=== PATIENT | male | born 1950 | race Two or more races ===

== ENCOUNTER 2018-11-09 14:13 | Inpatient (IN) | payer MEDICARE, OTHER ==
[~2018-11-09] VITALS: Ht 177.8 cm; Wt 102.9 kg
[2018-11-09] MEDS ORDERED: BISACODYL 10 MG SUPP PR PRN (17:00)
[2018-11-09] MEDS ORDERED: ONDANSETRON ODT 4 MG PO PRN (17:00)
[2018-11-09] MEDS ORDERED: POLYETHYLENE GLYCOL 17 GM PACKET PO PRN (17:00)
[2018-11-09] MEDS ORDERED: PLEASE ENTER HEIGHT AND WEIGHT MC SCH (18:00)
[2018-11-09 18:06] VITALS: BP 174/83
[2018-11-09] MEDS ORDERED: CARV6.25 PO (18:42)
[2018-11-09] MEDS ORDERED: VENL75CA PO (18:42)
[2018-11-09] MEDS ORDERED: MEMA5TAB14 PO (18:42)
[2018-11-09] MEDS ORDERED: ENAL20TA PO (18:42)
[2018-11-09 19:39] VITALS: BP 150/85
[2018-11-09] MEDS: QUETIAPINE 25MG TABLET PO SCH (21:08)
[2018-11-09] MEDS: DIVALPROEX 125 MG CAP.SPRINK PO SCH (21:09)
[2018-11-09] MEDS ORDERED: LORazepam 0.5MG TABLET PO ONE (23:30)
[2018-11-09] MEDS ORDERED: LORazepam 2 MG/ML, 1ML IM ONE (23:30)
[2018-11-10 07:35] VITALS: BP 135/85
[2018-11-10 08:18] LABS: BASOPHILS # (AUTO) 0.03 x10^3/uL (0-0.1); BASOPHILS % (AUTO) 1 % (0-1); EOSINOPHILS # (AUTO) 0.13 x10^3/uL (0-0.4); EOSINOPHILS % (AUTO) 2 % (1-7); LYMPHOCYTES % (AUTO) 17 % (22-44); MD NO; MEAN CORPUSCULAR HEMOGLOBIN 31.6 pg (27.5-34.5); MEAN CORPUSCULAR HGB CONC 33.7 g/dL (33.2-36.2); MEAN CORPUSCULAR VOLUME 93.9 fL (81-97); MONOCYTES # (AUTO) 0.45 x10^3/uL (0.2-0.8); MONOCYTES % (AUTO) 7 % (2-9); NEUTROPHILS # (AUTO) 5.19 x10^3/uL (1.8-6.8); NEUTROPHILS % (AUTO) 74 % (42-75); PLATELET COUNT 174 x10^3/uL (130-400); RED BLOOD COUNT 5.03 x10^6/uL (4.38-5.82); RED CELL DISTRIBUTION WIDTH 13.5 % (9.4-14.8)
[2018-11-10 08:29] LABS: ALBUMIN 3.5 g/dL (3.4-5.0); ANION GAP 5 mmol/L (5-15); CALCIUM 9.1 mg/dL (8.5-10.1); CHLORIDE 108 mmol/L (98-107)
[2018-11-10 08:54] LABS: ALANINE AMINOTRANSFERASE 20 U/L (12-78); ALKALINE PHOSPHATASE 92 U/L (45-117); BILIRUBIN,TOTAL 0.8 mg/dL (0.2-1.0); CHOL/HDL RATIO 2.7; CHOLESTEROL, TOTAL 186 mg/dL (140-239); HDL CHOL % 37 % (26-37); HDL CHOLESTEROL (DIRECT) 68 mg/dL (40-60); LDL CHOLESTEROL,CALCULATED 86 mg/dL (54-169); LDL/HDL RATIO 1.3 (0.5-3.0); TOTAL PROTEIN 7.1 g/dL (6.4-8.2); TRIGLYCERIDES 158 mg/dL (50-200); VLDL CHOLESTEROL 32 mg/dL (0-25)
[2018-11-10] MEDS: SENNA/DOCUSATE TABLET PO SCH (09:51)
[2018-11-10] MEDS: DIVALPROEX 125 MG CAP.SPRINK PO SCH ×2 (09:51→20:21)
[2018-11-10] MEDS: QUETIAPINE 25MG TABLET PO PRN (09:52)
[2018-11-10] MEDS: MEMANTINE 5MG TABLET PO SCH (20:20)
[2018-11-10] MEDS: ACAMPROSATE 333 MG TABLET.DR PO SCH (20:20)
[2018-11-10] MEDS: QUETIAPINE 25MG TABLET PO SCH (20:21)
[2018-11-11 02:18] LABS: MICROSCOPIC NOT IND
[2018-11-11 02:22] LABS: CULTURE INDICATED? NO
[2018-11-11] MEDS: ASPIRIN 81 MG TABLET EC PO SCH (06:14)
[2018-11-11] MEDS: OMEPRAZOLE 20 MG CAPSULE.DR PO SCH (06:14)
[2018-11-11 08:00] VITALS: BP 168/91
[2018-11-11] MEDS: LORATADINE 10 MG TABLET PO SCH (09:25)
[2018-11-11] MEDS: VENLAFAXINE 75 MG CAP ER PO SCH (09:25)
[2018-11-11] MEDS: DIVALPROEX 125 MG CAP.SPRINK PO SCH ×2 (09:26→19:56)
[2018-11-11] MEDS: SENNA/DOCUSATE TABLET PO SCH (09:26)
[2018-11-11] MEDS: MEMANTINE 5MG TABLET PO SCH ×2 (09:26→20:10)
[2018-11-11] MEDS: ACAMPROSATE 333 MG TABLET.DR PO SCH ×3 (09:26→19:56)
[2018-11-11 11:45] VITALS: BP 174/87
[2018-11-11] MEDS: CARVEDILOL 3.125 MG TABLET PO SCH ×2 (11:50→17:18)
[2018-11-11 17:20] VITALS: BP 183/91
[2018-11-11] MEDS: ENALAPRIL 2.5MG TABLET PO SCH ×2 (18:15→19:56)
[2018-11-11 19:31] VITALS: BP 199/96
[2018-11-11] MEDS: QUETIAPINE 25MG TABLET PO SCH (19:56)
[2018-11-12] MEDS: CARVEDILOL 3.125 MG TABLET PO SCH ×2 (05:14→16:27)
[2018-11-12] MEDS: ASPIRIN 81 MG TABLET EC PO SCH (05:14)
[2018-11-12] MEDS: OMEPRAZOLE 20 MG CAPSULE.DR PO SCH (05:14)
[2018-11-12 07:27] VITALS: BP 197/94
[2018-11-12 08:22] LABS: ALBUMIN 3.4 g/dL (3.4-5.0); ANION GAP 4 mmol/L (5-15); CALCIUM 9.1 mg/dL (8.5-10.1); CHLORIDE 111 mmol/L (98-107)
[2018-11-12 08:23] LABS: CREATININE 1.23 mg/dL (0.7-1.3)
[2018-11-12] MEDS: ACAMPROSATE 333 MG TABLET.DR PO SCH ×3 (09:23→20:10)
[2018-11-12] MEDS: ENALAPRIL 2.5MG TABLET PO SCH ×2 (09:23→20:12)
[2018-11-12] MEDS: SENNA/DOCUSATE TABLET PO SCH (09:23)
[2018-11-12] MEDS: MEMANTINE 5MG TABLET PO SCH ×2 (09:24→20:09)
[2018-11-12] MEDS: LORATADINE 10 MG TABLET PO SCH (09:24)
[2018-11-12] MEDS: VENLAFAXINE 75 MG CAP ER PO SCH (09:24)
[2018-11-12] MEDS: DIVALPROEX 125 MG CAP.SPRINK PO SCH ×2 (09:24→20:12)
[2018-11-12] MEDS: ACETAMINOPHEN 325 MG TABLET PO PRN (16:27)
[2018-11-12 17:29] VITALS: BP 194/82
[2018-11-12] MEDS ORDERED: LISINOPRIL 20 MG TABLET PO STA (17:52)
[2018-11-12 18:30] VITALS: BP 185/95
[2018-11-12] MEDS: QUETIAPINE 25MG TABLET PO SCH (20:10)
[2018-11-12] MEDS: LISINOPRIL 20 MG TABLET PO SCH (20:12)
[2018-11-12] MEDS: CARVEDILOL 12.5 MG TABLET PO SCH (20:13)
[2018-11-12] MEDS ORDERED: LORazepam 0.5MG TABLET ONE (21:47)
[2018-11-13] MEDS: OMEPRAZOLE 20 MG CAPSULE.DR PO SCH (05:52)
[2018-11-13] MEDS: ASPIRIN 81 MG TABLET EC PO SCH (05:52)
[2018-11-13 07:37] VITALS: BP 186/75
[2018-11-13] MEDS: LISINOPRIL 20 MG TABLET PO SCH ×2 (08:56→20:16)
[2018-11-13] MEDS: SENNA/DOCUSATE TABLET PO SCH (08:56)
[2018-11-13] MEDS: ACAMPROSATE 333 MG TABLET.DR PO SCH ×3 (08:56→20:14)
[2018-11-13] MEDS: CARVEDILOL 12.5 MG TABLET PO SCH ×2 (08:57→20:15)
[2018-11-13] MEDS: DIVALPROEX 125 MG CAP.SPRINK PO SCH ×2 (08:57→20:15)
[2018-11-13] MEDS: LORATADINE 10 MG TABLET PO SCH (08:57)
[2018-11-13] MEDS: ENALAPRIL 2.5MG TABLET PO SCH ×2 (08:57→20:16)
[2018-11-13] MEDS: VENLAFAXINE 75 MG CAP ER PO SCH (08:57)
[2018-11-13] MEDS: MEMANTINE 5MG TABLET PO SCH ×2 (08:57→20:15)
[2018-11-13] MEDS: QUETIAPINE 25MG TABLET PO PRN (16:55)
[2018-11-13 17:29] VITALS: BP 179/74
[2018-11-13] MEDS: QUETIAPINE 25MG TABLET PO SCH (20:17)
[2018-11-13 21:00] VITALS: BP 179/80
[2018-11-14] MEDS: QUETIAPINE 25MG TABLET PO PRN (01:32)
[2018-11-14] MEDS: OMEPRAZOLE 20 MG CAPSULE.DR PO SCH (05:29)
[2018-11-14] MEDS: ASPIRIN 81 MG TABLET EC PO SCH (05:29)
[2018-11-14 06:04] LABS: ALBUMIN 3.1 g/dL (3.4-5.0); ANION GAP 4 mmol/L (5-15); CALCIUM 8.6 mg/dL (8.5-10.1); CHLORIDE 113 mmol/L (98-107); CREATININE 1.22 mg/dL (0.7-1.3)
[2018-11-14 07:37] VITALS: BP 165/82
[2018-11-14] MEDS: ENALAPRIL 2.5MG TABLET PO SCH (08:12)
[2018-11-14] MEDS: SENNA/DOCUSATE TABLET PO SCH (08:12)
[2018-11-14] MEDS: ACAMPROSATE 333 MG TABLET.DR PO SCH ×3 (08:12→20:17)
[2018-11-14] MEDS: ACETAMINOPHEN 325 MG TABLET PO PRN (08:12)
[2018-11-14] MEDS: LORATADINE 10 MG TABLET PO SCH (08:12)
[2018-11-14] MEDS: DIVALPROEX 125 MG CAP.SPRINK PO SCH ×2 (08:12→20:17)
[2018-11-14] MEDS: VENLAFAXINE 75 MG CAP ER PO SCH (08:13)
[2018-11-14] MEDS: MEMANTINE 5MG TABLET PO SCH ×2 (08:13→21:04)
[2018-11-14] MEDS: CARVEDILOL 12.5 MG TABLET PO SCH ×2 (08:13→20:17)
[2018-11-14 13:24] VITALS: BP 170/98
[2018-11-14 19:55] VITALS: BP 189/98
[2018-11-14] MEDS: ENALAPRIL 10 MG TABLET PO SCH (20:16)
[2018-11-14] MEDS: QUETIAPINE 25MG TABLET PO SCH (20:17)
[2018-11-15] MEDS: OMEPRAZOLE 20 MG CAPSULE.DR PO SCH (05:44)
[2018-11-15] MEDS: ASPIRIN 81 MG TABLET EC PO SCH (05:44)
[2018-11-15 07:27] VITALS: BP 190/95
[2018-11-15] MEDS: SENNA/DOCUSATE TABLET PO SCH (08:05)
[2018-11-15] MEDS: DIVALPROEX 125 MG CAP.SPRINK PO SCH ×2 (08:05→19:54)
[2018-11-15] MEDS: ACAMPROSATE 333 MG TABLET.DR PO SCH ×3 (08:05→19:53)
[2018-11-15] MEDS: MEMANTINE 5MG TABLET PO SCH ×2 (08:05→19:55)
[2018-11-15] MEDS: LORATADINE 10 MG TABLET PO SCH (08:05)
[2018-11-15] MEDS: ENALAPRIL 10 MG TABLET PO SCH ×2 (08:05→19:55)
[2018-11-15] MEDS: VENLAFAXINE 75 MG CAP ER PO SCH (08:05)
[2018-11-15 09:00] VITALS: BP 176/84
[2018-11-15] MEDS: CARVEDILOL 12.5 MG TABLET PO SCH ×2 (09:23→19:54)
[2018-11-15 10:38] LABS: ALBUMIN 3.4 g/dL (3.4-5.0); ANION GAP 5 mmol/L (5-15); CALCIUM 8.8 mg/dL (8.5-10.1); CHLORIDE 112 mmol/L (98-107); CREATININE 1.22 mg/dL (0.7-1.3)
[2018-11-15 14:59] VITALS: BP 185/83
[2018-11-15 19:24] VITALS: BP_SYST 212; BP_SYST 215; BP_DIAS 90; BP_DIAS 98
[2018-11-15] MEDS: QUETIAPINE 25MG TABLET PO PRN (19:54)
[2018-11-15] MEDS: QUETIAPINE 25MG TABLET PO SCH (19:54)
[2018-11-16 07:25] VITALS: BP 191/87
[2018-11-16] MEDS: OMEPRAZOLE 20 MG CAPSULE.DR PO SCH (08:08)
[2018-11-16] MEDS: VENLAFAXINE 75 MG CAP ER PO SCH (08:08)
[2018-11-16] MEDS: CARVEDILOL 12.5 MG TABLET PO SCH ×2 (08:08→19:47)
[2018-11-16] MEDS: MEMANTINE 5MG TABLET PO SCH ×2 (08:08→19:47)
[2018-11-16] MEDS: ACAMPROSATE 333 MG TABLET.DR PO SCH ×3 (08:08→19:47)
[2018-11-16] MEDS: ENALAPRIL 20MG TABLET PO SCH ×2 (08:09→19:47)
[2018-11-16] MEDS: LORATADINE 10 MG TABLET PO SCH (08:09)
[2018-11-16] MEDS: SENNA/DOCUSATE TABLET PO SCH (08:09)
[2018-11-16] MEDS: ASPIRIN 81 MG TABLET EC PO SCH (08:09)
[2018-11-16] MEDS: DIVALPROEX 125 MG CAP.SPRINK PO SCH ×2 (08:09→19:47)
[2018-11-16] MEDS: QUETIAPINE 25MG TABLET PO SCH (19:47)
[2018-11-16 20:31] VITALS: BP 165/75
[2018-11-16] MEDS: QUETIAPINE 25MG TABLET PO PRN (22:57)
[2018-11-17] MEDS: ASPIRIN 81 MG TABLET EC PO SCH (05:28)
[2018-11-17] MEDS: OMEPRAZOLE 20 MG CAPSULE.DR PO SCH (05:28)
[2018-11-17 07:09] VITALS: BP 197/79
[2018-11-17] MEDS: LORATADINE 10 MG TABLET PO SCH (08:24)
[2018-11-17] MEDS: ACAMPROSATE 333 MG TABLET.DR PO SCH ×3 (08:24→20:31)
[2018-11-17] MEDS: SENNA/DOCUSATE TABLET PO SCH (08:24)
[2018-11-17] MEDS: ENALAPRIL 20MG TABLET PO SCH ×2 (08:24→20:31)
[2018-11-17] MEDS: DIVALPROEX 125 MG CAP.SPRINK PO SCH ×2 (08:24→20:32)
[2018-11-17] MEDS: CARVEDILOL 12.5 MG TABLET PO SCH ×2 (08:25→20:31)
[2018-11-17] MEDS: MEMANTINE 5MG TABLET PO SCH (08:25)
[2018-11-17] MEDS: VENLAFAXINE 75 MG CAP ER PO SCH (08:25)
[2018-11-17] MEDS: QUETIAPINE 25MG TABLET PO PRN (16:23)
[2018-11-17 19:41] VITALS: BP 175/79
[2018-11-17] MEDS: QUETIAPINE 25MG TABLET PO SCH ×2 (20:31)
[2018-11-17] MEDS: MEMANTINE 10MG TABLET PO SCH (20:32)
[2018-11-18] MEDS: ASPIRIN 81 MG TABLET EC PO SCH (06:18)
[2018-11-18] MEDS: OMEPRAZOLE 20 MG CAPSULE.DR PO SCH (06:18)
[2018-11-18 07:07] VITALS: BP 191/76
[2018-11-18 08:32] LABS: ALBUMIN 3.2 g/dL (3.4-5.0); ANION GAP 2 mmol/L (5-15); CALCIUM 8.4 mg/dL (8.5-10.1); CHLORIDE 114 mmol/L (98-107); CREATININE 1.17 mg/dL (0.7-1.3)
[2018-11-18] MEDS: LORATADINE 10 MG TABLET PO SCH (08:36)
[2018-11-18] MEDS: ACAMPROSATE 333 MG TABLET.DR PO SCH ×3 (08:36→19:49)
[2018-11-18] MEDS: ENALAPRIL 20MG TABLET PO SCH ×2 (08:37→19:50)
[2018-11-18] MEDS: CARVEDILOL 12.5 MG TABLET PO SCH ×2 (08:37→19:50)
[2018-11-18] MEDS: VENLAFAXINE 75 MG CAP ER PO SCH (08:37)
[2018-11-18] MEDS: MEMANTINE 10MG TABLET PO SCH ×2 (08:37→19:49)
[2018-11-18] MEDS: DIVALPROEX 125 MG CAP.SPRINK PO SCH ×2 (08:37→19:49)
[2018-11-18] MEDS: SENNA/DOCUSATE TABLET PO SCH ×2 (08:37→09:00)
[2018-11-18] MEDS: QUETIAPINE 25MG TABLET PO SCH ×3 (08:38→19:53)
[2018-11-18 09:33] VITALS: BP 146/81
[2018-11-18 19:59] VITALS: BP 196/97
[2018-11-19] MEDS: ASPIRIN 81 MG TABLET EC PO SCH (05:16)
[2018-11-19] MEDS: OMEPRAZOLE 20 MG CAPSULE.DR PO SCH (05:17)
[2018-11-19 07:50] VITALS: BP 189/75
[2018-11-19] MEDS: SENNA/DOCUSATE TABLET PO SCH (09:05)
[2018-11-19] MEDS: ACAMPROSATE 333 MG TABLET.DR PO SCH ×3 (09:05→19:52)
[2018-11-19] MEDS: VENLAFAXINE 75 MG CAP ER PO SCH (09:06)
[2018-11-19] MEDS: MEMANTINE 10MG TABLET PO SCH ×2 (09:06→19:52)
[2018-11-19] MEDS: LORATADINE 10 MG TABLET PO SCH (09:06)
[2018-11-19] MEDS: DIVALPROEX 125 MG CAP.SPRINK PO SCH ×2 (09:06→19:52)
[2018-11-19] MEDS: ENALAPRIL 20MG TABLET PO SCH ×2 (09:06→19:53)
[2018-11-19] MEDS: QUETIAPINE 25MG TABLET PO SCH ×3 (09:06→19:54)
[2018-11-19] MEDS: CARVEDILOL 12.5 MG TABLET PO SCH ×2 (09:06→19:53)
[2018-11-19 12:38] VITALS: BP 179/79
[2018-11-19 19:55] VITALS: BP 207/92
[2018-11-19 20:22] VITALS: BP 160/93
[2018-11-20] MEDS: ASPIRIN 81 MG TABLET EC PO SCH (06:00)
[2018-11-20] MEDS: OMEPRAZOLE 20 MG CAPSULE.DR PO SCH (06:00)
[2018-11-20 08:00] VITALS: BP 173/89
[2018-11-20 08:38] LABS: ALBUMIN 3.3 g/dL (3.4-5.0); ANION GAP 3 mmol/L (5-15); CALCIUM 8.8 mg/dL (8.5-10.1); CHLORIDE 113 mmol/L (98-107); CREATININE 1.12 mg/dL (0.7-1.3)
[2018-11-20] MEDS: CARVEDILOL 12.5 MG TABLET PO SCH ×2 (10:22→20:01)
[2018-11-20] MEDS: ENALAPRIL 20MG TABLET PO SCH ×2 (10:22→20:01)
[2018-11-20] MEDS: LORATADINE 10 MG TABLET PO SCH (10:22)
[2018-11-20] MEDS: SPIRONOLACTONE 25 MG TABLET PO SCH (10:22)
[2018-11-20] MEDS: ACAMPROSATE 333 MG TABLET.DR PO SCH ×3 (10:22→20:01)
[2018-11-20] MEDS: VENLAFAXINE 75 MG CAP ER PO SCH (10:22)
[2018-11-20] MEDS: SENNA/DOCUSATE TABLET PO SCH (10:22)
[2018-11-20] MEDS: DIVALPROEX 125 MG CAP.SPRINK PO SCH ×2 (10:22→20:01)
[2018-11-20] MEDS: QUETIAPINE 25MG TABLET PO SCH ×3 (10:28→20:01)
[2018-11-20] MEDS: MEMANTINE 10MG TABLET PO SCH ×2 (10:31→20:00)
[2018-11-20 22:49] VITALS: BP 154/70
[2018-11-21 07:20] VITALS: BP 215/82
[2018-11-21] MEDS ORDERED: ENALAPRILAT 1.25 MG/ML, 2ML IV PRN (08:30)
[2018-11-21] MEDS: MEMANTINE 10MG TABLET PO SCH ×2 (08:36→19:57)
[2018-11-21] MEDS: OMEPRAZOLE 20 MG CAPSULE.DR PO SCH (08:36)
[2018-11-21] MEDS: LORATADINE 10 MG TABLET PO SCH (08:36)
[2018-11-21] MEDS: CARVEDILOL 12.5 MG TABLET PO SCH ×2 (08:37→19:57)
[2018-11-21] MEDS: ASPIRIN 81 MG TABLET EC PO SCH (08:37)
[2018-11-21] MEDS: ENALAPRIL 20MG TABLET PO SCH ×2 (08:37→19:57)
[2018-11-21] MEDS: VENLAFAXINE 75 MG CAP ER PO SCH (08:37)
[2018-11-21] MEDS: ACAMPROSATE 333 MG TABLET.DR PO SCH ×3 (08:37→19:55)
[2018-11-21] MEDS: DIVALPROEX 125 MG CAP.SPRINK PO SCH ×2 (08:38→19:56)
[2018-11-21] MEDS: SENNA/DOCUSATE TABLET PO SCH (08:39)
[2018-11-21] MEDS: QUETIAPINE 25MG TABLET PO SCH ×3 (08:39→19:57)
[2018-11-21] MEDS: SPIRONOLACTONE 25 MG TABLET PO SCH ×2 (08:41→19:56)
[2018-11-21 08:43] LABS: ALBUMIN 3.5 g/dL (3.4-5.0); ANION GAP 4 mmol/L (5-15); CHLORIDE 114 mmol/L (98-107); CREATININE 1.07 mg/dL (0.7-1.3)
[2018-11-21 19:10] VITALS: BP 216/190
[2018-11-22] MEDS: ASPIRIN 81 MG TABLET EC PO SCH (05:43)
[2018-11-22] MEDS: OMEPRAZOLE 20 MG CAPSULE.DR PO SCH (05:43)
[2018-11-22 08:00] VITALS: BP 213/91
[2018-11-22] MEDS: LORATADINE 10 MG TABLET PO SCH (08:15)
[2018-11-22] MEDS: DIVALPROEX 125 MG CAP.SPRINK PO SCH ×2 (08:15→19:44)
[2018-11-22] MEDS: ACAMPROSATE 333 MG TABLET.DR PO SCH ×3 (08:15→19:43)
[2018-11-22] MEDS: SPIRONOLACTONE 25 MG TABLET PO SCH ×2 (08:16→19:44)
[2018-11-22] MEDS: CARVEDILOL 12.5 MG TABLET PO SCH ×2 (08:16→19:43)
[2018-11-22] MEDS: ENALAPRIL 20MG TABLET PO SCH ×2 (08:16→19:44)
[2018-11-22] MEDS: SENNA/DOCUSATE TABLET PO SCH (08:16)
[2018-11-22] MEDS: VENLAFAXINE 75 MG CAP ER PO SCH (08:16)
[2018-11-22] MEDS: QUETIAPINE 25MG TABLET PO SCH ×3 (08:17→19:45)
[2018-11-22] MEDS: MEMANTINE 10MG TABLET PO SCH ×2 (08:17→19:44)
[2018-11-22 09:42] VITALS: BP 174/85
[2018-11-22] MEDS: FUROSEMIDE 20 MG TABLET PO SCH (12:52)
[2018-11-22] MEDS ORDERED: ENAL20TA PO (18:01)
[2018-11-22] MEDS ORDERED: ASPI81TA45 PO (18:01)
[2018-11-22] MEDS ORDERED: OMEP-110 PO (18:01)
[2018-11-22] MEDS ORDERED: SPIR25TA PO (18:01)
[2018-11-22] MEDS ORDERED: QUET25TA7 PO ×2 (18:01)
[2018-11-22] MEDS ORDERED: CARV12.543 PO (18:01)
[2018-11-22] MEDS ORDERED: FURO20TA3 PO (18:01)
[2018-11-22] MEDS ORDERED: MEMA10TA20 PO (18:01)
[2018-11-22] MEDS ORDERED: LORA-247 PO (18:01)
[2018-11-22] MEDS ORDERED: VENL75CA6 PO (18:01)
[2018-11-22] MEDS ORDERED: DIVA125C2 PO (18:01)
[2018-11-22] MEDS ORDERED: ACAM333T7 PO (18:01)
[2018-11-22 20:00] VITALS: BP 215/90
[2018-11-23] MEDS: ASPIRIN 81 MG TABLET EC PO SCH (05:51)
[2018-11-23] MEDS: OMEPRAZOLE 20 MG CAPSULE.DR PO SCH (05:51)
[2018-11-23 07:35] VITALS: BP_SYST 160; BP_SYST 185; BP_DIAS 69; BP_DIAS 77
[2018-11-23 08:22] LABS: ALBUMIN 3.5 g/dL (3.4-5.0); ANION GAP 3 mmol/L (5-15); CHLORIDE 112 mmol/L (98-107); CREATININE 1.19 mg/dL (0.7-1.3)
[2018-11-23] MEDS: SENNA/DOCUSATE TABLET PO SCH ×2 (08:44→08:50)
[2018-11-23] MEDS: LORATADINE 10 MG TABLET PO SCH ×2 (08:44→08:50)
[2018-11-23] MEDS: VENLAFAXINE 75 MG CAP ER PO SCH ×2 (08:44→08:50)
[2018-11-23] MEDS: DIVALPROEX 125 MG CAP.SPRINK PO SCH ×3 (08:45→21:12)
[2018-11-23] MEDS: SPIRONOLACTONE 25 MG TABLET PO SCH ×2 (08:45→08:50)
[2018-11-23] MEDS: MEMANTINE 10MG TABLET PO SCH ×3 (08:45→21:12)
[2018-11-23] MEDS: ACAMPROSATE 333 MG TABLET.DR PO SCH ×4 (08:45→21:11)
[2018-11-23] MEDS: ENALAPRIL 20MG TABLET PO SCH ×3 (08:45→21:13)
[2018-11-23] MEDS: CARVEDILOL 12.5 MG TABLET PO SCH ×3 (08:46→21:12)
[2018-11-23] MEDS: FUROSEMIDE 20 MG TABLET PO SCH ×2 (08:46→08:50)
[2018-11-23] MEDS: QUETIAPINE 25MG TABLET PO SCH ×3 (08:46→21:13)
[2018-11-23 15:49] VITALS: BP 179/78
[2018-11-23 18:20] VITALS: BP 196/81
[2018-11-23] MEDS: ENALAPRIL 2.5MG TABLET PO PRN ×2 (18:32→18:34)
[2018-11-23 21:00] VITALS: BP 158/87
[2018-11-23] MEDS: SPIRONOLACTONE 50 MG TABLET PO SCH (21:13)
[2018-11-24] MEDS: ASPIRIN 81 MG TABLET EC PO SCH (06:14)
[2018-11-24] MEDS: OMEPRAZOLE 20 MG CAPSULE.DR PO SCH (06:14)
[2018-11-24 07:08] VITALS: BP 212/78
[2018-11-24 08:35] LABS: ALBUMIN 3.4 g/dL (3.4-5.0); ANION GAP 6 mmol/L (5-15); CHLORIDE 113 mmol/L (98-107)
[2018-11-24 08:36] LABS: CREATININE 1.11 mg/dL (0.7-1.3)
[2018-11-24] MEDS: MEMANTINE 10MG TABLET PO SCH ×2 (08:41→20:40)
[2018-11-24] MEDS: CARVEDILOL 12.5 MG TABLET PO SCH ×2 (08:41→20:41)
[2018-11-24] MEDS: ACAMPROSATE 333 MG TABLET.DR PO SCH ×3 (08:41→20:41)
[2018-11-24] MEDS: LORATADINE 10 MG TABLET PO SCH (08:41)
[2018-11-24] MEDS: SPIRONOLACTONE 50 MG TABLET PO SCH ×2 (08:41→20:41)
[2018-11-24] MEDS: VENLAFAXINE 75 MG CAP ER PO SCH (08:41)
[2018-11-24] MEDS: DIVALPROEX 125 MG CAP.SPRINK PO SCH ×2 (08:41→20:41)
[2018-11-24] MEDS: SENNA/DOCUSATE TABLET PO SCH (08:41)
[2018-11-24] MEDS: FUROSEMIDE 20 MG TABLET PO SCH (08:42)
[2018-11-24] MEDS: ENALAPRIL 20MG TABLET PO SCH ×2 (09:04→20:41)
[2018-11-24 09:20] VITALS: BP 166/67
[2018-11-24 12:11] VITALS: BP 186/95
[2018-11-24] MEDS: QUETIAPINE 25MG TABLET PO SCH ×3 (12:30→20:40)
[2018-11-24] MEDS: ENALAPRIL 2.5MG TABLET PO PRN ×2 (12:31→17:56)
[2018-11-24 17:52] VITALS: BP 213/90
[2018-11-24 20:14] VITALS: BP 160/95
[2018-11-24] MEDS: QUETIAPINE 25MG TABLET PO PRN (22:26)
[2018-11-25] MEDS: ASPIRIN 81 MG TABLET EC PO SCH (05:27)
[2018-11-25] MEDS: OMEPRAZOLE 20 MG CAPSULE.DR PO SCH (05:27)
[2018-11-25 07:30] VITALS: BP 203/78
[2018-11-25] MEDS: MEMANTINE 10MG TABLET PO SCH (08:01)
[2018-11-25] MEDS: SENNA/DOCUSATE TABLET PO SCH (08:01)
[2018-11-25] MEDS: CARVEDILOL 12.5 MG TABLET PO SCH (08:01)
[2018-11-25] MEDS: DIVALPROEX 125 MG CAP.SPRINK PO SCH (08:01)
[2018-11-25] MEDS: ACAMPROSATE 333 MG TABLET.DR PO SCH (08:01)
[2018-11-25] MEDS: SPIRONOLACTONE 50 MG TABLET PO SCH (08:01)
[2018-11-25] MEDS: LORATADINE 10 MG TABLET PO SCH (08:01)
[2018-11-25] MEDS: ENALAPRIL 20MG TABLET PO SCH (08:01)
[2018-11-25] MEDS: VENLAFAXINE 75 MG CAP ER PO SCH (08:01)
[2018-11-25] MEDS: FUROSEMIDE 20 MG TABLET PO SCH (08:01)
[2018-11-25] MEDS: QUETIAPINE 25MG TABLET PO SCH (12:00)
== END 2018-11-25 11:10 | disposition home or self-care (01) | DRG 57 ==
LOC: 3E 17:28
PROVIDERS: ADMIT Psychiatry & Neurology Psychosomatic Medicine; ATTEND Psychiatry & Neurology Psychosomatic Medicine
DX: G30.9 Alzheimer's disease, unspecified (principal); F01.51 Vascular dementia, unspecified severity, with behavioral disturbance; E51.2 Wernicke's encephalopathy; E87.0 Hyperosmolality and hypernatremia; F09 Unspecified mental disorder due to known physiological condition; E66.9 Obesity, unspecified; F32.9 Major depressive disorder, single episode, unspecified; G47.00 Insomnia, unspecified; G62.9 Polyneuropathy, unspecified; I10 Essential (primary) hypertension; I25.10 Atherosclerotic heart disease of native coronary artery without angina pectoris; J30.9 Allergic rhinitis, unspecified; I48.91 Unspecified atrial fibrillation; K21.9 Gastro-esophageal reflux disease without esophagitis; M19.90 Unspecified osteoarthritis, unspecified site; R45.850 Homicidal ideations; Z88.9 Allergy status to unspecified drugs, medicaments and biological substances; Z88.8 Allergy status to other drugs, medicaments and biological substances; Z79.82 Long term (current) use of aspirin; Z79.899 Other long term (current) drug therapy; Z80.6 Family history of leukemia; Z82.3 Family history of stroke; Z83.3 Family history of diabetes mellitus; Z68.32 Body mass index [BMI] 32.0-32.9, adult
CPT/HCPCS: 36415; 70450; 74176; 80048; 80053; 80061; 80069; 81003; 82040; 82088; 82570; 82607; 83835; 84156; 84244; 84439; 84443; 85025; 86592; 92522-GN